=== PATIENT | male | born 1950 | race Caucasian/White ===

== ENCOUNTER 2021-06-21 18:47 | Emergency (ER) | payer MEDICARE, OTHER ==
[~2021-06-21] VITALS: Ht 185.4 cm; Wt 126.6 kg
[~2021-06-21 18:47] MED LIST: ATORVASTATIN CA20 MG PO; CHLORPHENIRAMINE PO; GLUCOPHAGE1000 MG PO; HYDROCODONE PO; LANTUS100 UNIT/1; NOVOLOG100 UNIT/1; PREDNISONE5 MG PO; PSEUDOEPHEDRINE PO
[2021-06-21] MEDS ORDERED: SODIUM CHLORIDE 0.9% 1000ML 1,000 ML IV STA (19:17)
[2021-06-21] MEDS ORDERED: ONDANSETRON HCL INJ 2MG/ML 2ML 2 MG/ML VIAL IV STA (19:17)
[2021-06-21] MEDS ORDERED: ACETAMINOPHEN 325 MG TAB PO STA ×2 (19:20→23:22)
[2021-06-21 19:36] LABS: BASOPHILS % 0.4 % (0.0-1.0); HEMATOCRIT 41.6 % (38.2-49.6); LYMPHOCYTES # (AUTO) 0.6 (1.0-3.2); LYMPHOCYTES % 25.9 % (18.0-39.1); MEAN CORPUSCULAR HEMOGLOBIN 30.7 pg (28-32); MEAN CORPUSCULAR HGB CONC 33.7 g/dL (31-35); MEAN CORPUSCULAR VOLUME 91.2 fL (81-99); MONOCYTES # (AUTO) 0.9 (0.2-0.8); MONOCYTES % 37.5 % (4.4-11.3); NEUTROPHILS # (AUTO) 0.8 (2.1-6.9); NEUTROPHILS % 34.9 % (38.7-80.0); RED BLOOD COUNT 4.56 x10e6/uL (4.3-5.7); RED CELL DISTRIBUTION WIDTH 13.7 % (11.7-14.4)
[2021-06-21] MEDS ORDERED: ONDANSETRON HCL INJ 2MG/ML 2ML 2 MG/ML VIAL ONE (19:43)
[2021-06-21 19:46] LABS: PLATELET COUNT 7 x10e3/uL (140-360)
[2021-06-21 19:57] LABS: ALBUMIN 3.2 g/dL (3.5-5.0); ALBUMIN/GLOBULIN RATIO 0.7 (0.8-2.0); ANION GAP 24.2 mmol/L (8-16); CALCIUM 8.6 mg/dL (8.4-10.2); CREATININE, SERUM 1.25 mg/dL (0.72-1.25); POTASSIUM 4.2 mmol/L (3.5-5.1)
[2021-06-21 20:03] LABS: CREATINE KINASE MB 0.6 ng/mL (0-5.0)
[2021-06-21 20:54] LABS: CLARITY,URINE SL CLOUDY (CLEAR); COLOR,URINE YELLOW (YELLOW); KETONES,URINE 2+ (NEGATIVE); LEUKOCYTE ESTERASE ,URINE NEGATIVE (NEGATIVE); NITRITE,URINE NEGATIVE (NEGATIVE); PROTEIN,URINE DIPSTICK 2+ (NEGATIVE); URINE UROBILINOGEN 0.2 mg/dL (0.2 - 1)
[2021-06-21 21:15] LABS: BACTERIA,URINE MODERATE /HPF; EPITHELIAL CELLS,URINE FEW /LPF; WBC,URINE (MAN) 0-5 /HPF (0-5)
[2021-06-21] MEDS ORDERED: PIPERACILLIN/TAZOBACTAM 3.375 GM in SODIUM CHLORIDE 0.9% 50ML 50 ML IV SCH (22:00)
[2021-06-21] MEDS ORDERED: ONDANSETRON ODT4 MG PO (22:53)
[2021-06-21] MEDS ORDERED: AZITHROMYCIN250 MG PO (22:53)
[2021-06-21] MEDS ORDERED: KETOROLAC TROMETHAMINE 30 MG/ML VIAL IV STA (23:22)
[2021-06-21] MEDS ORDERED: ACETAMINOPHEN 325 MG TAB ONE (23:37)
[2021-06-21] MEDS ORDERED: KETOROLAC TROMETHAMINE 30 MG/ML VIAL ONE (23:37)
[2021-06-22 00:06] VITALS: BP 106/51
[2021-06-22 01:07] LABS: ABG PCO2 30 mmHg (35-45); ABG PH 7.41 (7.35-7.45); ABG PO2 74 mmHg (80-105)
[2021-06-22 01:08] LABS: ABG HCO3 19 mmol/L (22-26); ABG TCO2 20
[2021-06-23] MEDS ORDERED: XIGDUO XR 5 MG1 EAC1 PO (11:19)
[2021-06-23] MEDS ORDERED: LISINOPRIL20 MG PO (11:19)
[2021-06-23] MEDS ORDERED: ASPIRIN81 MG PO (11:19)
[2021-06-23] MEDS ORDERED: BASAGLAR K100 UNIT/1 SC (11:19)
== END 2021-06-22 00:18 | disposition home or self-care (01) ==
LOC: ER 19:16
DX: R50.9 Fever, unspecified (principal); R11.2 Nausea with vomiting, unspecified; J18.9 Pneumonia, unspecified organism; D69.6 Thrombocytopenia, unspecified; E11.65 Type 2 diabetes mellitus with hyperglycemia; Z20.822 Contact with and (suspected) exposure to COVID-19; Z86.73 Personal history of transient ischemic attack (TIA), and cerebral infarction without residual deficits
CPT/HCPCS: 36415; 36600; 71045; 80053; 81001; 82550; 82553; 82805; 83518; 83605; 83690; 83880; 84484; 85025; 87040; 87070; 87400; 93005; 99284; J1885; J2405; J2543; J7030; U0002

== ENCOUNTER 2021-06-23 08:44 | Inpatient (IN) | payer MEDICARE ==
[~2021-06-23] VITALS: Ht 185.4 cm; Wt 127.0 kg
[~2021-06-23 08:44] MED LIST changes: +AZITHROMYCIN250 MG PO; +ONDANSETRON ODT4 MG PO
[2021-06-23] MEDS ORDERED: SODIUM CHLORIDE 0.9% 1000ML 1,000 ML IV STA (09:08)
[2021-06-23] MEDS ORDERED: ONDANSETRON HCL INJ 2MG/ML 2ML 2 MG/ML VIAL IV NR (09:15)
[2021-06-23] MEDS ORDERED: PIPERACILLIN/TAZOBACTAM 3.375 GM in SODIUM CHLORIDE 0.9% 50ML 50 ML IV NR (09:30)
[2021-06-23 09:51] LABS: BASOPHILS % 1.6 % (0.0-1.0); HEMATOCRIT 40.3 % (38.2-49.6); HEMOGLOBIN 13.6 g/dL (14.0-18.0); LYMPHOCYTES # (AUTO) 0.5 (1.0-3.2); LYMPHOCYTES % 28.6 % (18.0-39.1); MEAN CORPUSCULAR HEMOGLOBIN 30.1 pg (28-32); MEAN CORPUSCULAR HGB CONC 33.7 g/dL (31-35); MEAN CORPUSCULAR VOLUME 89.2 fL (81-99); MONOCYTES # (AUTO) 0.3 (0.2-0.8); MONOCYTES % 13.2 % (4.4-11.3); NEUTROPHILS % 51.8 % (38.7-80.0); RED BLOOD COUNT 4.52 x10e6/uL (4.3-5.7); RED CELL DISTRIBUTION WIDTH 14.2 % (11.7-14.4)
[2021-06-23 10:21] LABS: PLATELET COUNT 36 x10e3/uL (140-360)
[2021-06-23 10:22] LABS: ALBUMIN 3.3 g/dL (3.5-5.0); ALBUMIN/GLOBULIN RATIO 0.9 (0.8-2.0); ANION GAP 16.3 mmol/L (8-16); CREATININE, SERUM 1.26 mg/dL (0.72-1.25); MAGNESIUM 1.8 MG/DL (1.3-2.1); POTASSIUM 4.3 mmol/L (3.5-5.1)
[2021-06-23] MEDS ORDERED: ACETAMINOPHEN 325 MG TAB PO NR (10:30)
[2021-06-23 10:37] LABS: SALICYLATE < 5.0 mg/dL (0-30)
[2021-06-23] MEDS ORDERED: VANCOMYCIN HCL 1GM/NS 250 ML BAG IV ONE (10:45)
[2021-06-23 10:46] LABS: CLARITY,URINE CLEAR (CLEAR); COLOR,URINE YELLOW (YELLOW); KETONES,URINE 2+ (NEGATIVE); LEUKOCYTE ESTERASE ,URINE NEGATIVE (NEGATIVE); NITRITE,URINE NEGATIVE (NEGATIVE); PROTEIN,URINE DIPSTICK 2+ (NEGATIVE)
[2021-06-23 10:47] LABS: AMPHETAMINES SCREEN,URINE NEGATIVE (NEGATIVE); BENZODIAZEPINES SCREEN,URINE NEGATIVE (NEGATIVE); PHENCYCLIDINE SCREEN,URINE NEGATIVE (NEGATIVE); URINE UROBILINOGEN 0.2 mg/dL (0.2 - 1)
[2021-06-23] MEDS ORDERED: IOPAMIDOL 370 MG/ML 200 ML INFUS..BTL INJ ONE (10:52)
[2021-06-23] MEDS ORDERED: SODIUM CHLORIDE 0.9% 50ML 50 ML ONE (10:52)
[2021-06-23 10:56] LABS: INR 1.18; PARTIAL THROMBOPLASTIN TIME 42.9 seconds (23.8-35.5); PROTHROMBIN TIME 15.3 seconds (11.9-14.5)
[2021-06-23] MEDS ORDERED: Vancomycin IV 1 GM in SODIUM CHLORIDE 0.9% 250ML 250 ML IV ONE (11:00)
[2021-06-23 11:13] LABS: MUCUS,URINE FEW (RARE)
[2021-06-23] MEDS ORDERED: ASPIRIN81 MG PO (11:19)
[2021-06-23] MEDS ORDERED: BASAGLAR K100 UNIT/1 SC (11:19)
[2021-06-23] MEDS ORDERED: LISINOPRIL20 MG PO (11:19)
[2021-06-23] MEDS ORDERED: XIGDUO XR 5 MG1 EAC1 PO (11:19)
[2021-06-23 12:06] LABS: CREATINE KINASE MB 0.8 ng/mL (0-5.0)
[2021-06-23] MEDS ORDERED: MORPHINE SULFATE INJ 2 MG/ML SYR IV PRN (12:15)
[2021-06-23] MEDS ORDERED: ONDANSETRON HCL INJ 2MG/ML 2ML 2 MG/ML VIAL IV PRN (12:15)
[2021-06-23 12:30] LABS: BAND NEUTROPHILS % (MANUAL) 4 %; LYMPHOCYTES % (MANUAL) 23 % (19-48); MONOCYTES % (MANUAL) 12 % (3.4-9.0); NEUTROPHILS % (MANUAL) 61 % (40-74)
[2021-06-23 12:31] LABS: HYPOCHROMASIA MODE; PLATELET ESTIMATE MARKEDLY DECREASED; POLYCHROMASIA MODE; RBC MORPHOLOGY COMMENT NORMAL
[2021-06-23] MEDS: SODIUM CHLORIDE 0.9% 1000ML 1,000 ML IV SCH ×2 (12:56→21:44)
[2021-06-23] MEDS ORDERED: ACETAMINOPHEN 325 MG TAB PO ONE (15:15)
[2021-06-23] MEDS: ACETAMINOPHEN 325 MG TAB PO PRN ×2 (15:26→21:44)
[2021-06-23 16:16] VITALS: BP 109/66
[2021-06-23 16:22] VITALS: BP 109/66
[2021-06-23 16:31] VITALS: BP 109/66
[2021-06-23] MEDS ORDERED: ONDANSETRON HCL 4 MG ORAL DISINTEGRATING TAB PO SCH (18:00)
[2021-06-23 18:19] LABS: CREATINE KINASE MB 1.7 ng/mL (0-5.0)
[2021-06-23] MEDS: PIPERACILLIN/TAZOBACTAM 3.375 GM in SODIUM CHLORIDE 0.9% 50ML 50 ML IV SCH (18:24)
[2021-06-23 19:10] VITALS: BP 157/67
[2021-06-23] MEDS ORDERED: INSULIN GLARGINE HUM REC ANLOG 75 UNIT SC SCH (21:00)
[2021-06-23] MEDS ORDERED: [UNRECOGNIZED DRUG - OTHER] SC SCH (21:00)
[2021-06-23] MEDS: INSULIN GLARGINE 100 UNITS/ML VIAL SQ SCH (21:30)
[2021-06-23] MEDS: ATORVASTATIN 40 MG TAB PO SCH (21:44)
[2021-06-23 22:10] VITALS: BP 157/67
[2021-06-24] VITALS (10 sets, daily range): BP systolic 117–134; BP diastolic 62–78
[2021-06-24] MEDS: PIPERACILLIN/TAZOBACTAM 3.375 GM in SODIUM CHLORIDE 0.9% 50ML 50 ML IV SCH ×4 (00:20→18:04)
[2021-06-24 05:10] LABS: BASOPHILS % 0.8 % (0.0-1.0); HEMATOCRIT 33.4 % (38.2-49.6); HEMOGLOBIN 11.4 g/dL (14.0-18.0); LYMPHOCYTES # (AUTO) 0.9 (1.0-3.2); LYMPHOCYTES % 36.1 % (18.0-39.1); MEAN CORPUSCULAR HEMOGLOBIN 30.4 pg (28-32); MEAN CORPUSCULAR HGB CONC 34.1 g/dL (31-35); MEAN CORPUSCULAR VOLUME 89.1 fL (81-99); MONOCYTES # (AUTO) 0.3 (0.2-0.8); MONOCYTES % 13.3 % (4.4-11.3); NEUTROPHILS # (AUTO) 1.2 (2.1-6.9); NEUTROPHILS % 45.1 % (38.7-80.0); RED BLOOD COUNT 3.75 x10e6/uL (4.3-5.7); RED CELL DISTRIBUTION WIDTH 14.6 % (11.7-14.4)
[2021-06-24 05:34] LABS: ALBUMIN 2.7 g/dL (3.5-5.0); ALBUMIN/GLOBULIN RATIO 0.9 (0.8-2.0); ANION GAP 10.6 mmol/L (8-16); CALCIUM 7.1 mg/dL (8.4-10.2); CREATININE, SERUM 1.09 mg/dL (0.72-1.25); POTASSIUM 3.6 mmol/L (3.5-5.1)
[2021-06-24 05:59] LABS: PLATELET COUNT 30 x10e3/uL (140-360)
[2021-06-24] MEDS: ACETAMINOPHEN 325 MG TAB PO PRN (06:01)
[2021-06-24 06:12] LABS: CREATINE KINASE MB 0.5 ng/mL (0-5.0)
[2021-06-24] MEDS: DAPAGLIFLOZIN PO SCH ×2 (08:00→17:00)
[2021-06-24] MEDS: METFORMIN HCL PO SCH ×2 (08:00→17:00)
[2021-06-24] MEDS: SODIUM CHLORIDE 0.9% 1000ML 1,000 ML IV SCH ×2 (08:28→18:26)
[2021-06-24] MEDS: LISINOPRIL 20 MG TAB PO SCH (08:31)
[2021-06-24] MEDS: ASPIRIN 81 MG CHEW TAB PO SCH (08:31)
[2021-06-24] MEDS: PREDNISONE 10 MG TAB PO SCH (08:32)
[2021-06-24] MEDS: CHOLESTYRAMINE 4 GM PACKET PO SCH ×2 (10:26→17:09)
[2021-06-24 14:35] LABS: CREATINE KINASE MB 0.8 ng/mL (0-5.0)
[2021-06-24] MEDS: ATORVASTATIN 40 MG TAB PO SCH (20:46)
[2021-06-24] MEDS: INSULIN GLARGINE 100 UNITS/ML VIAL SQ SCH (20:46)
[2021-06-25] VITALS (9 sets, daily range): BP systolic 126–140; BP diastolic 68–81
[2021-06-25] MEDS: SODIUM CHLORIDE 0.9% 1000ML 1,000 ML IV SCH ×2 (02:22→14:29)
[2021-06-25] MEDS: PIPERACILLIN/TAZOBACTAM 3.375 GM in SODIUM CHLORIDE 0.9% 50ML 50 ML IV SCH ×5 (05:09→18:43)
[2021-06-25 05:40] LABS: BASOPHILS % 0.8 % (0.0-1.0); EOSINOPHILS % 1.3 % (0.0-6.0); HEMATOCRIT 31.3 % (38.2-49.6); HEMOGLOBIN 10.6 g/dL (14.0-18.0); LYMPHOCYTES # (AUTO) 1.2 (1.0-3.2); LYMPHOCYTES % 48.3 % (18.0-39.1); MEAN CORPUSCULAR HEMOGLOBIN 30.1 pg (28-32); MEAN CORPUSCULAR HGB CONC 33.9 g/dL (31-35); MEAN CORPUSCULAR VOLUME 88.9 fL (81-99); MONOCYTES # (AUTO) 0.6 (0.2-0.8); MONOCYTES % 24.8 % (4.4-11.3); NEUTROPHILS # (AUTO) 0.5 (2.1-6.9); NEUTROPHILS % 22.3 % (38.7-80.0); RED BLOOD COUNT 3.52 x10e6/uL (4.3-5.7); RED CELL DISTRIBUTION WIDTH 14.9 % (11.7-14.4)
[2021-06-25 05:45] LABS: PLATELET COUNT 25 x10e3/uL (140-360)
[2021-06-25] MEDS: METFORMIN HCL PO SCH ×2 (08:00→17:00)
[2021-06-25] MEDS: DAPAGLIFLOZIN PO SCH ×2 (08:00→17:00)
[2021-06-25 08:16] LABS: ANION GAP 15.5 mmol/L (8-16); CALCIUM 7.1 mg/dL (8.4-10.2); CREATININE, SERUM 0.78 mg/dL (0.72-1.25); POTASSIUM 3.5 mmol/L (3.5-5.1)
[2021-06-25 09:08] LABS: EOSINOPHILS % (MANUAL) 2 % (0-7); LYMPHOCYTES % (MANUAL) 40 % (19-48); MONOCYTES % (MANUAL) 30 % (3.4-9.0); NEUTROPHILS % (MANUAL) 24 % (40-74); PLATELET ESTIMATE MARKEDLY DECREASED; PLATELET MORPHOLOGY COMMENT NORMAL; RBC MORPHOLOGY COMMENT NORMAL
[2021-06-25] MEDS: LISINOPRIL 20 MG TAB PO SCH (09:11)
[2021-06-25] MEDS: CHOLESTYRAMINE 4 GM PACKET PO SCH ×2 (09:11→18:43)
[2021-06-25] MEDS: PREDNISONE 10 MG TAB PO SCH (09:11)
[2021-06-25] MEDS: ASPIRIN 81 MG CHEW TAB PO SCH (09:11)
[2021-06-25] MEDS: ATORVASTATIN 40 MG TAB PO SCH (21:00)
[2021-06-25] MEDS: INSULIN GLARGINE 100 UNITS/ML VIAL SQ SCH (21:00)
[2021-06-26] VITALS: BP 139/79
[2021-06-26 04:00] VITALS: BP 134/68
[2021-06-26] MEDS: PIPERACILLIN/TAZOBACTAM 3.375 GM in SODIUM CHLORIDE 0.9% 50ML 50 ML IV SCH ×3 (05:19)
[2021-06-26 05:49] LABS: BASOPHILS % 0.4 % (0.0-1.0); EOSINOPHILS % 1.3 % (0.0-6.0); HEMATOCRIT 31.7 % (38.2-49.6); HEMOGLOBIN 10.7 g/dL (14.0-18.0); LYMPHOCYTES # (AUTO) 1.2 (1.0-3.2); LYMPHOCYTES % 50.8 % (18.0-39.1); MEAN CORPUSCULAR HEMOGLOBIN 30.2 pg (28-32); MEAN CORPUSCULAR HGB CONC 33.8 g/dL (31-35); MEAN CORPUSCULAR VOLUME 89.5 fL (81-99); MONOCYTES # (AUTO) 0.8 (0.2-0.8); MONOCYTES % 33.3 % (4.4-11.3); NEUTROPHILS # (AUTO) 0.3 (2.1-6.9); NEUTROPHILS % 13.8 % (38.7-80.0); PLATELET COUNT 83 x10e3/uL (140-360); RED BLOOD COUNT 3.54 x10e6/uL (4.3-5.7); RED CELL DISTRIBUTION WIDTH 14.6 % (11.7-14.4)
[2021-06-26] MEDS: SODIUM CHLORIDE 0.9% 1000ML 1,000 ML IV SCH ×2 (05:49→10:15)
[2021-06-26 06:33] LABS: ANION GAP 13.9 mmol/L (8-16); CALCIUM 7.5 mg/dL (8.4-10.2); CREATININE, SERUM 0.78 mg/dL (0.72-1.25); POTASSIUM 3.9 mmol/L (3.5-5.1)
[2021-06-26 07:29] VITALS: BP 129/67
[2021-06-26] MEDS: DAPAGLIFLOZIN PO SCH (08:00)
[2021-06-26] MEDS: METFORMIN HCL PO SCH (08:00)
[2021-06-26 08:31] LABS: LYMPHOCYTES % (MANUAL) 51 % (19-48); MONOCYTES % (MANUAL) 38 % (3.4-9.0); NEUTROPHILS % (MANUAL) 11 % (40-74)
[2021-06-26 08:32] LABS: PLATELET ESTIMATE MODERATELY DECREASED; PLATELET MORPHOLOGY COMMENT NORMAL; RBC MORPHOLOGY COMMENT NORMAL; TOXIC GRANULATION MODERATE
[2021-06-26 08:45] VITALS: BP 129/67
[2021-06-26] MEDS: ASPIRIN 81 MG CHEW TAB PO SCH (09:00)
[2021-06-26] MEDS: CHOLESTYRAMINE 4 GM PACKET PO SCH (09:00)
[2021-06-26] MEDS: PREDNISONE 10 MG TAB PO SCH (09:00)
[2021-06-26] MEDS: LISINOPRIL 20 MG TAB PO SCH (09:00)
[2021-06-26 11:30] VITALS: BP 136/76
[2021-06-26] MEDS ORDERED: [UNRECOGNIZED DRUG - CODE] (15:10)
[2021-06-26] MEDS ORDERED: AUGMENTIN 875-1 EACH PO (15:10)
[2021-06-26 15:43] VITALS: BP 135/71
== END 2021-06-26 16:09 | disposition home or self-care (01) | DRG 871 ==
LOC: ER 08:50 → ERHOLD 12:28 → MED/SURG2 15:55
DX: A41.9 Sepsis, unspecified organism (principal); J18.9 Pneumonia, unspecified organism; D61.818 Other pancytopenia; D69.3 Immune thrombocytopenic purpura; N17.9 Acute kidney failure, unspecified; K86.9 Disease of pancreas, unspecified; E86.0 Dehydration; Z20.822 Contact with and (suspected) exposure to COVID-19; E11.9 Type 2 diabetes mellitus without complications; Z86.73 Personal history of transient ischemic attack (TIA), and cerebral infarction without residual deficits; E66.9 Obesity, unspecified; Z90.81 Acquired absence of spleen; K52.9 Noninfective gastroenteritis and colitis, unspecified; I25.10 Atherosclerotic heart disease of native coronary artery without angina pectoris; Z68.36 Body mass index [BMI] 36.0-36.9, adult
CPT/HCPCS: 36415; 70450; 71045; 71046; 74177; 80048; 80053; 80307; 80320; 80329; 81001; 82550; 82553; 82607; 82746; 82948; 83605; 83735; 84484; 85025; 85610; 85730; 86850; 86900; 87040; 87086; 87493; 93005; 99251; 99285; J0456; J1815; J2405; J2543; J3370; J7030; J7050; J7512; Q9967; U0002